=== PATIENT | male | born 1945 | race Caucasian/White ===

== ENCOUNTER → 2016-06-19 | Outpatient (CLI) | payer MEDICARE, OTHER | LOC: RAD 14:37 | PROVIDERS: ATTEND Family Medicine | DX: R35.0 Frequency of micturition (principal) | CPT/HCPCS: 51798 ==

== ENCOUNTER 2016-08-26 10:53 | Inpatient (IN) | payer MEDICARE, OTHER ==
[~2016-08-26] VITALS: Ht 175.3 cm; Wt 83.3 kg
[~2016-08-26 10:53] MED LIST: AMIO200T2 PO; CARV3.12 PO; DGX.25T PO; DIGO125T PO; FURO-125 PO; FURO20TA4 PO; LISI5TAB14 PO; LYSI1000 PO; MIRA50TA PO; SPRN25T PO; WRF5T PO; [UNRECOGNIZED DRUG - CODE] IV; [UNRECOGNIZED DRUG - CODE] SC
[2016-08-26] MEDS ORDERED: TAMS0.4C2 PO (11:38)
[2016-08-26] MEDS ORDERED: CYAN250014 PO (11:39)
[2016-08-26] MEDS ORDERED: MGX400T PO (11:40)
[2016-08-26] MEDS ORDERED: SPIR25TA PO (11:41)
[2016-08-26] MEDS ORDERED: CARV12.5 PO (11:42)
[2016-08-26 12:10] VITALS: BP 105/86
[2016-08-26] MEDS ORDERED: FUROSEMIDE 100 MG/10 ML (LASIX) VIAL IV ONE (12:15)
[2016-08-26] MEDS ORDERED: PROMETHAZINE HCL INJ 12.5 MG in SODIUM CHLORIDE 25 ML IV PRN (12:15)
[2016-08-26] MEDS ORDERED: ONDANSETRON 4 MG (ZOFRAN) ORAL DISSOLVE TAB PO PRN (12:15)
[2016-08-26] MEDS ORDERED: ACETAMINOPHEN 325 MG TAB (TYLENOL) PO PRN (12:15)
[2016-08-26] MEDS ORDERED: POLYETHYLENE GLYCOL 17 GM (MIRALAX) PACKET PO PRN (12:15)
[2016-08-26] MEDS ORDERED: MAGNESIUM HYDROXIDE 80MG/ML (MILK OF MAGNESIA) 30 ML UDC PO PRN (12:15)
[2016-08-26] MEDS ORDERED: NS FLUSH 3 ML PRN IV (12:45)
--- NOTE | 2016-08-26 12:45 | History and Physical (E) ---
History & Physical PCP: Min Araya MD CC: Heart failure HPI Sarath Salazar is a 71 year old male admitted from clinic 08/26 with atrial fibrillation, intermittent RVR, and worsening congestive heart failure failing outpatient management. PCP reports that he has been trying to diurese patient but that patient is still complaining of dyspnea at rest and with activity. SpO2 was stable in office. BNP still elevated > 600 despite diuresis. On arrival to unit, awake, alert, interactive, oriented, NAD and able to relate history well. States onset of illness was about1 week ago and getting worse since. Started with feeling short of breath. No cough. No fever. [place] a bit bloated but appetite had been decreasing. Weight has increased perhaps by 5 pounds per PCP report. Has been taking furosemide as prescribed over the last week by PCP though somewhat inconsistently. No mid-sternal chest pain but has had some discomfort over the left lateral rib region. NO pain with deep inspiration. Has felt some palpitations. PMH * HTN * Colon polyps * Left thalamic lacunar infarct * Vtach * Chronic systolic congestive heart failure with prior LVEF 38% * BPH * Atrial fibrillation * Anticoagulation with warfarin * Thoracic aortic aneurysm * MITZI but not on CPAP * History of tobacco abuse * Nocturnal hypoxia PSH * Colonoscopy * Dual chamber pacemaker with defibrillator. * Herniorrhaphy * TURP 1993 ALLERGIES: Please see list at end of report. HOME MEDICATIONS: Please see list at end of report. FH Mother of colon cancer. Father of [place]. Son of skin cancer in 2014. SH . Lives in his own home. of breast cancer. 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 Quit smoking 2000. No children. ROS CONSTITUTION: Denies fever. HEENT: No change in vision or hearing. No sores in mouth, sore throat. CV: Per HPI, exam. PULM: Per HPI, exam. GI: Occasional dyspepsia. At present, no upset stomach, nausea, vomiting, constipation, or diarrhea. No blood in stool. : Urinary hesitancy. MS: No new muscle or joint aches and pains. NEURO: No numbness or tingling. No weakness. INTEG: No rashes, lesions, or sores. ENDO: No heat or cold intolerance. No polydipsia or polyuria. HEME/LYMPH: No easy bruising. No swollen glands. PSYCH: No change in mood or behavior. OBJECTIVE Temp 96.7 HR 55 RR 20 SpO2 91% RA BP GEN: Awake, alert, oriented, NAD at present. HEENT: EOMI, clear sclerae, moist oral mucosa. CV: Bradycardic, irregular, S1 S2 audible without significant murmur. LUNGS: Diminished throughout but no audible R/R/W. ABD: Soft, NT/ND with normal bowel sounds. EXTR: 1+ lower extremity edema bilaterally. INTEG: No rash. Age related changes. NEURO: Tremor in right arm. Weight: 87.1 kg LABS (Reviewed from office.) 08/26 CBC: WBC 12.7, Hgb 14.3, Plt 135 08/26 CMP: Na 138, K 4.3, Cl 101, CO2 28, BUN 22, Cr 1.3, Ca 9.1, Gluc 92, AST < 7, ALT <5, AlkP 41, Alb 3.8, Prot 6.9, Bili 1.9 08/26 BNP: 677 08/26 INR: 1.9 IMAGING 08/26/16 CXR (Reviewed from office): No apparent signs of pneumonia. Increased interstitial markings. No effusion. ASSESSMENT Sarath Salazar is a 71 year old male admitted from clinic 08/26 with mild, subjective acute respiratory distress attributed to acute on chronic systolic congestive heart failure. He had increased weight and leg swelling on admit. He has a few chronic problems. PLAN * Acute Respiratory Distress: Mild, subjective. Oxygen protocol, IS. * Atrial fibrillation: Intermittent RVR per PCP report. Monitor tele. Digoxin, carvedilol. Warfarin. * Acute on Chronic Systolic Congestive Heart Failure: Weight reportedly up at least 5 pounds despite outpatient attempts at diuresis. Check new echo. 2 gram sodium diet. I&O, daily weight. Carvedilol, spironolactone, lisinopril. Furosemide. * Deconditioning: PT eval and treat. * F/E/N: 2 gram sodium diet. Peripheral IV. I&O daily weight. * Prophylaxis: Enoxaparin * Code Status: DNR. Discussed at time of admit. * Dispo: Inpatient, expecting 2-3 day stay. May benefit from skilled care though he is somewhat resistant to this idea. CHRONIC ISSUES Home medications to be reviewed. * HTN: Carvedilol, lisinopril, spironolactone * BPH: Tamsulosin * B12 Deficiency: Cyanocobalamin. Allergies/Home Medications Allergies: Coded Allergies: No Known Allergies (Verified Allergy, Unknown, 12/15/15) Reported Home Medications Scheduled Carvedilol (Carvedilol) 12.5 MG PO BID (Reported) Cyanocobalamin (Vitamin B-12) (Vitamin B12) 1,000 MCG PO DAILY (Reported) Furosemide (Furosemide) 20 MG PO DAILY (Reported) Lisinopril (Lisinopril) 2.5 MG PO DAILY (Reported) Magnesium Oxide (Magnesium Oxide) 400 MG PO DAILY (Reported) Spironolactone (Aldactone) 25 MG PO DAILY (Reported) Tamsulosin HCl (Tamsulosin HCl) 0.4 MG PO DAILY@1700 (Reported) Warfarin (Warfarin) 4 MG PO DAILY (Reported) Miscellaneous Medications Digoxin (Digoxin) 125 MCG PO (Reported) Discontinued Medications Amiodarone HCl (Amiodarone HCl) 200 MG PO BID (Reported) Discontinued Reason: Course completed Carvedilol (Coreg) 6.25 MG PO BID (Reported) Discontinued Reason: Course completed Enoxaparin Sodium (Lovenox) 120 MG SC DAILY (Reported) Discontinued Reason: Course completed Mirabegron (Myrbetriq) 50 MG PO DAILY (Reported) Discontinued Reason: Course completed Spironolactone (Spironolactone) 12.5 MG PO DAILY (Reported) Discontinued Reason: Course completed Warfarin (Warfarin) Unknown Dose PO as directed (Reported) Discontinued Reason: Course completed Copies to: End of Report . XIOMARA OROZCO MD Aug 26, 2016 12:22
[2016-08-26 12:54] LABS: MAGNESIUM* 1.9 mg/dL (1.6-2.3)
[2016-08-26] MEDS ORDERED: WARF4TAB3 PO (12:55)
[2016-08-26] MEDS ORDERED: PRED5DRO2I OD (13:19)
[2016-08-26] MEDS ORDERED: FUROSEMIDE 100 MG/10 ML (LASIX) VIAL IV SCH (14:00)
--- NOTE | 2016-08-26 16:01 | Physical Therapy Evaluation(E) ---
Plan of Care STG: Plan-Treatment Functional: Independent with HEP STG Time Frame: 5 Days Goals Discussed/Agreed: Yes Plan: Balance, Functional Strengthening, Gait & Transfer Training, Neuro Re- Education, Progressive Ambulation, Transfer Training, Therapy Excercise Discharge Recommendations: TCU/Skilled NH (Due to patient's declining functional status at home per his report and current functional level. ) Aware of Dx and Prognosis: Yes Aware of Risk & Benefit: Yes To be Seen: Daily Thursday-Thursday Initial Evaluation Service Date/Time 08/26/16, 15:51 Primary Diagnosis: (1) Benign positional vertigo ICD Code: H81.10 (2) Acute on chronic systolic (congestive) heart failure ICD Code: I50.23 (3) Congestive heart failure ICD Code: 428.0 (4) Dyspnea ICD Code: 786.09 Treatment Diagnosis: (1) Benign positional vertigo ICD Code: H81.10 (2) Acute on chronic systolic (congestive) heart failure ICD Code: I50.23 (3) Congestive heart failure ICD Code: 428.0 (4) Hx of colonic polyps ICD Code: Z86.010 (5) Dyspnea ICD Code: 786.09 Onset Date: 08/26/2016 Start of Care Date: Aug 26, 2016 Resuscitation Status: Full Code Fall Level: No Risk 0-24 Initial Assessment Reason for Rehab: Increase Mobility, Increase Strength, Increase Balance, Increase AROM, Increase Transfers, Increase Endurance Medical History: A-Fib, CHF, CVA (16 years agao left thalamic lacunar infract) , Hypertension, Other (Pacemaker, thoracic aaortic aneurysm) Pain Location/Comment Patient denies pain. Prior Level of Function The patient lives alone in a single step entry ranch home. 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 Patient would do light meal prep, is having assistance with house cleaning secondary to increasing weakness. Patient would go bike at a fitness center up to 40 minutes but recently this was becoming more difficult. Rehabilitation Potential: Good (Due to willingness to improve function. ) Distance Walked in Feet Patient was fatigued and had increased shortness of air just with sitting on edge of bed. ROM/Strength Hip Mobility: Right Hip Strength: 3 Left Hip Strength: 3 Knee Flexion Mobility: Right Knee Flexion Strength: 3 Left Knee Flexion Strength: 3 Knee Extension Mobility: Right Knee Extension Strength: 3 Left Knee Extension Strength: 3 Assessment/Goals Initial Transfer Assessment Rolling: Supervision or setup Sit-Supine: Supervision or setup Sitting Edge of Bed: Supervision or setup (HR variable from 44 - 99 bpm, 02 saturation 83% verbal cues for diaphragmatic breathing. ) Supine-Sit: Supervision or setup Sit-Stand from Bed: Not Assessed/NA Stand-Sit: Not Assessed/NA Pivot Transfers: Not Assessed/NA Ambulation: Not Assessed/NA Transfer Short Term Goals Rolling: Modified [place] Sit-Supine: Modified [place] Sitting Edge of Bed: Modified [place] Supine-Sit: Modified [place] Sit-Stand from bed: Modified [place] Stand-Sit: Modified [place] Ambulation: Modified [place] Distance to Walk in Feet 300 feet maintaining 02 saturation above 88%. Coding Time In: 1520 Time Out: 1538 Total Minutes: 18 Charges: 75768 Eval< 20 min LISANDRO LANGFORD PT Aug 26, 2016 16:01
[2016-08-26 16:20] VITALS: BP 95/57
[2016-08-26] MEDS: warFARin 4 MG (COUMADIN) TAB PO SCH (17:36)
[2016-08-26] MEDS: TAMSULOSIN 0.4 MG (FLOMAX) CAP PO SCH (17:36)
[2016-08-26] MEDS: PREDNISOLONE 1% OD SCH (17:37)
[2016-08-26] MEDS: NS FLUSH 10 ML PRN IV (17:37)
[2016-08-26] MEDS ORDERED: CARVEDILOL 12.5 MG (COREG) TABLET PO SCH (18:00)
[2016-08-26 20:30] VITALS: BP 83/55
[2016-08-26 23:55] VITALS: BP 78/52
[2016-08-27 00:21] VITALS: BP 80/59
[2016-08-27 04:15] VITALS: BP 94/68
[2016-08-27 06:26] LABS: BASOPHILS % (AUTO) 0 % (0-2); EOSINOPHILS # (AUTO) 0.1 10^3uL; EOSINOPHILS % (AUTO) 1 % (0-4); LYMPHOCYTES # (AUTO) 0.9 X10^3; MEAN CORPUSCULAR HEMOGLOBIN 29.1 PG (26.0-34.0); MEAN CORPUSCULAR HGB CONC 33.2 g/dL (31.0-37.0); MEAN CORPUSCULAR VOLUME 88 FL (80-100); MEAN PLATELET VOLUME 11.3 FL (6.0-9.5); MONOCYTES # (AUTO) 0.8 X10^3; MONOCYTES % (AUTO) 11 % (3-11); NEUTROPHILS # (AUTO) 5.8 X10^3; NEUTROPHILS % (AUTO) 76 % (51-67); PLATELET COUNT 133 10^3uL (150-450); WHITE BLOOD COUNT 7.64 10^3uL (4.0-11.0)
[2016-08-27 06:50] LABS: ALBUMIN 3.6 g/dL (3.4-5.0); ANION GAP 13.1 MEQ/L (3-15); MAGNESIUM* 1.9 mg/dL (1.6-2.3)
[2016-08-27 07:43] VITALS: BP 88/50
[2016-08-27] MEDS ORDERED: SPIRONOLACTONE 25 MG (ALDACTONE) TABLET PO SCH (09:00)
[2016-08-27] MEDS: lisINopril 5 MG (PRINIVIL) TABLET PO SCH (09:00)
[2016-08-27] MEDS: MAGNESIUM OXIDE 400 MG (MAG-OX) TAB PO SCH (09:25)
[2016-08-27] MEDS: DIGOXIN 0.125 MG (LANOXIN) TAB PO SCH (09:25)
[2016-08-27] MEDS: CYANOCOBALAMIN 1000 MCG (VITAMIN B-12) TABLET PO SCH (09:25)
[2016-08-27] MEDS: NS FLUSH 3 ML DAILY IV SCH (09:26)
[2016-08-27] MEDS: PREDNISOLONE 1% OD SCH ×3 (09:26→18:25)
[2016-08-27] MEDS ORDERED: MAGNESIUM 1 GM/100 ML IVPB 100 ML IV ONE (10:30)
--- NOTE | 2016-08-27 11:03 | Progress Note (E) ---
Progress Note SUBJECTIVE Had some Vtach bursts through the night. Overnight physician checked troponin trend but it was normal. Furosemide was held. Mg 1.9. Giving 1 gram IV supplement this AM to push it above 2. Remains on tele. Noted he has AICD. Hypotensive at times. Lowering dose of carvedilol and spironolactone. On 1 L NC. Afebrile. On exam, awake, interactive, oriented. Updated on findings, plan of care. OBJECTIVE Vital Signs Date Time Temp Pulse Resp B/P Pulse Ox O2 Delivery O2 Flow Rate FiO2 08/27/16 08:00 130 08/27/16 07:43 97.4 20 88/50 97 Nasal cannula 08/26/16 23:55 1.00 I & O 08/26/16 08/27/16 Cumulative From/Thru 19:00 07:00 08/26/16 11:38 - 08/27/16 06:32 Intake Total 592 ml 400 ml 992 ml Output Total 2250 ml 2250 ml Balance 592 ml -1850 ml -1258 ml GEN: Awake, alert, oriented, NAD at present. HEENT: EOMI, clear sclerae, moist oral mucosa. CV: Bradycardic, irregular, S1 S2 audible without significant murmur. LUNGS: Diminished throughout but no audible R/R/W. ABD: Soft, NT/ND with normal bowel sounds. EXTR: 1+ lower extremity edema bilaterally. INTEG: No rash. Age related changes. NEURO: Tremor in right arm. Weight: 83.3 kg Lab-Past 14 Days, 35 Results 08/26/16 12:33: Magnesium Level 1.9, Troponin I 0.021 08/27/16 00:10: Troponin I 0.024 08/27/16 06:05: Magnesium Level 1.9, Troponin I 0.021, Albumin 3.6, Anion Gap 13.1, Basophils # (Auto) 0.0, Basophils (%) (Auto) 0, Blood Urea Nitrogen 28H, Calcium Level 9.2, Carbon Dioxide Level 31H, Chloride Level 100, Creatinine 1.28, Eosinophils # ( Auto) 0.1, Eosinophils (%) (Auto) 1, Estimat Glomerular Filtration Rate 67.4, Estimated GFR (Non- 55.7, Glucose Level 79, Hematocrit 43.10, Hemoglobin 14.3, Lymphocytes # (Auto) 0.9, Lymphocytes (%) (Auto) 12L, Mean Corpuscular Hemoglobin 29.1, Mean Corpuscular Hemoglobin Concent 33.2, Mean Corpuscular Volume 88, Mean Platelet Volume 11.3H, Monocytes # (Auto) 0.8, Monocytes (%) (Auto) 11, Neutrophils # (Auto) 5.8, Neutrophils (%) (Auto) 76H, Phosphorus Level 4.2, Platelet Count 133L, Potassium Level 4.0, Prothromb Time International Ratio 2.2H, Prothrombin Time 24.9H, Red Blood Count 4.91, Red Cell Distribution Width 14.6, Sodium Level 140, White Blood Count 7.64 LABS (Reviewed from office.) 08/26 CBC: WBC 12.7, Hgb 14.3, Plt 135 08/26 CMP: Na 138, K 4.3, Cl 101, CO2 28, BUN 22, Cr 1.3, Ca 9.1, Gluc 92, AST < 7, ALT <5, AlkP 41, Alb 3.8, Prot 6.9, Bili 1.9 08/26 BNP: 677 08/26 INR: 1.9 IMAGING 08/27/16 ECHO: PENDING 08/26/16 CXR (Reviewed from office): No apparent signs of pneumonia. Increased interstitial markings. No effusion. ASSESSMENT Sarath Salazar is a 71 year old male admitted from clinic 08/26 with mild, subjective acute respiratory distress attributed to acute on chronic systolic congestive heart failure. He had increased weight and leg swelling on admit. He has a few chronic problems. PLAN * Acute Respiratory Distress: Mild, subjective. Oxygen protocol, IS. * Atrial fibrillation: Intermittent RVR per PCP report but mostly bradycardic since admit. Monitor tele. Digoxin, carvedilol. Warfarin. * Acute on Chronic Systolic Congestive Heart Failure: Weight reportedly up at least 5 pounds despite outpatient attempts at diuresis. Check new echo. 2 gram sodium diet. I&O, daily weight. Carvedilol, spironolactone, lisinopril. Furosemide had been held in AM 08/27 but restarted at lower dose. * Deconditioning: PT eval and treat. * Hypotension: Lowered dose of carvedilol to 6.25 mg BID and spironolactone to 12.5 mg. Parameters to hold if SBP < 90. Monitor trend closely. * Vtach: Has history of. Already has AICD. Echo pending but already known to have low LVEF. No longer on amiodarone. Give mag 1 gram IV. Digoxin. Monitor tele. * F/E/N: 2 gram sodium diet. Peripheral IV. I&O daily weight. * Prophylaxis: Enoxaparin * Code Status: DNR. Discussed at time of admit. * Dispo: Inpatient, expecting 2-3 day stay. May benefit from skilled care though he is somewhat resistant to this idea. CHRONIC ISSUES * HTN: Carvedilol, lisinopril, spironolactone * BPH: Tamsulosin * B12 Deficiency: Cyanocobalamin. XIOMARA OROZCO MD Aug 27, 2016 10:38
[2016-08-27 11:49] VITALS: BP 100/65
--- NOTE | 2016-08-27 13:49 | PT Daily Note Inpatient (E) ---
PT Daily Treatment Service Date/Time 08/27/16, 13:45 Medical Diagnosis: (1) Benign positional vertigo ICD Code: H81.10 (2) Acute on chronic systolic (congestive) heart failure ICD Code: I50.23 (3) Congestive heart failure ICD Code: 428.0 (4) Dyspnea ICD Code: 786.09 Physical Therapy: (1) Benign positional vertigo ICD Code: H81.10 (2) Acute on chronic systolic (congestive) heart failure ICD Code: I50.23 (3) Congestive heart failure ICD Code: 428.0 (4) Hx of colonic polyps ICD Code: Z86.010 (5) Dyspnea ICD Code: 786.09 Precaution/Isolation: Standard Precautions Resuscitation Status: Full Code Fall Level: Low Risk 25-50 Subjective Pt resting in bed. Agrees to therapy. Oxygen Delivery: Nasal cannula O2 liters/minute: 1 Treatments Sit, Stand, Supine: Supine Extremity: Both Lower Extremity Assistance: AROM Repetition: 1 x 20 Exercise: AP, QS, Heel Slides, Hip Abduction, SLR, Bridge Transfers Rolling: Complete [place] Sit-Supine: Modified [place] Sitting Edge of Bed: Complete [place] Supine-Sit: Complete [place] Sit-Stand from bed: Supervision or setup Stand-Sit: Supervision or setup Gait Ambulation: Contact Guard Assist Distance Walked: 600 feet with no O2 O2 sat maintained at 94% during gait on room air. Assistive Device: FWW Gait Description: Normal:No Sig. Deviation, Shuffling (on left foot at times.) Education/Plan Assessment O2 sat maintained in low 90's during treatment on room air. Plan Patient will be seen: Daily Thursday-Thursday Coding Time In: 13:16 Time Out: 13:44 Total Minutes: 28 Charges: 25417 Exercise Therp 15 m (28 minutes) Patrick Bhakta CLINICAL LAB SPECIALIST Aug 27, 2016 13:49
[2016-08-27] MEDS: NS FLUSH 10 ML PRN IV (14:47)
[2016-08-27] MEDS: FUROSEMIDE 40 MG/4 ML (LASIX) VIAL IV SCH (14:47)
[2016-08-27 16:00] VITALS: BP 130/69
[2016-08-27] MEDS: warFARin 4 MG (COUMADIN) TAB PO SCH (18:22)
[2016-08-27] MEDS: CARVEDILOL 6.25 MG (COREG) TAB PO SCH (18:22)
[2016-08-27] MEDS: TAMSULOSIN 0.4 MG (FLOMAX) CAP PO SCH (18:22)
[2016-08-27 20:51] VITALS: BP 91/62
[2016-08-28] VITALS: BP 89/58
[2016-08-28] MEDS: DOCUSATE SODIUM 100 MG (COLACE) CAP PO PRN ×2 (03:43→20:24)
[2016-08-28 04:10] VITALS: BP 89/58
[2016-08-28 06:44] LABS: ALBUMIN 3.7 g/dL (3.4-5.0); ANION GAP 14.6 MEQ/L (3-15); MAGNESIUM* 2.2 mg/dL (1.6-2.3)
[2016-08-28] MEDS: CARVEDILOL 6.25 MG (COREG) TAB PO SCH ×2 (07:29→18:00)
[2016-08-28] MEDS: lisINopril 5 MG (PRINIVIL) TABLET PO SCH (07:30)
[2016-08-28 08:03] VITALS: BP 82/61
[2016-08-28] MEDS: FUROSEMIDE 40 MG/4 ML (LASIX) VIAL IV SCH (08:12)
[2016-08-28] MEDS: SPIRONOLACTONE 25 MG (ALDACTONE) TABLET PO SCH (08:14)
[2016-08-28] MEDS: MAGNESIUM OXIDE 400 MG (MAG-OX) TAB PO SCH (08:14)
[2016-08-28] MEDS: DIGOXIN 0.125 MG (LANOXIN) TAB PO SCH (08:15)
[2016-08-28] MEDS: CYANOCOBALAMIN 1000 MCG (VITAMIN B-12) TABLET PO SCH (08:15)
[2016-08-28] MEDS: NS FLUSH 10 ML PRN IV (08:16)
[2016-08-28] MEDS: PREDNISOLONE 1% OD SCH ×3 (10:20→18:13)
[2016-08-28] MEDS: NS FLUSH 3 ML DAILY IV SCH (10:21)
--- NOTE | 2016-08-28 11:20 | PT Daily Note Inpatient (E) ---
PT Daily Treatment Service Date/Time 08/28/16, 11:19 Medical Diagnosis: (1) Benign positional vertigo ICD Code: H81.10 (2) Acute on chronic systolic (congestive) heart failure ICD Code: I50.23 (3) Congestive heart failure ICD Code: 428.0 (4) Dyspnea ICD Code: 786.09 Physical Therapy: (1) Benign positional vertigo ICD Code: H81.10 (2) Acute on chronic systolic (congestive) heart failure ICD Code: I50.23 (3) Congestive heart failure ICD Code: 428.0 (4) Hx of colonic polyps ICD Code: Z86.010 (5) Dyspnea ICD Code: 786.09 Precaution/Isolation: Standard Precautions Resuscitation Status: Full Code Fall Level: Low Risk 25-50 Subjective Pt resting in bed. Agrees to therapy. Oxygen Delivery: Nasal cannula O2 liters/minute: 2L Treatments Sit, Stand, Supine: Standing Extremity: Both Lower Extremity Assistance: AROM Repetition: 1 x 20 Exercise: Hip Abduction, Hip Flexion, TR, HR Comment Pt required moderate cues for deep breaths to maintain O2 in low 90's while standing and exercising. Transfers Supine-Sit: Complete [place] Sit-Stand from bed: Complete [place] Stand-Sit: Complete [place] Gait Ambulation: Contact Guard Assist Distance Walked: 900 feet on room air. O2 sat at 95% right after walking. Assistive Device: None Gait Description: Shuffling (on right.), Lacks Arm Swing (on right.) Gait Training: Limitations: Fatigue Education/Plan Assessment Pt tolerating increased activity. Response to Treatment: Improving Plan Patient will be seen: Daily Thursday-Thursday Coding Time In: 10:47 Time Out: 11:17 Total Minutes: 29 Charges: 40491 Exercise Therp 15 m (29 minutes) Patrick Bhakta FINANCIAL SERVICE REP Aug 28, 2016 11:20
[2016-08-28 12:14] VITALS: BP 99/69
[2016-08-28 16:10] VITALS: BP_SYST 120; BP_SYST 77; BP_DIAS 42; BP_DIAS 74
--- NOTE | 2016-08-28 17:32 | Progress Note (E) ---
Progress Note SUBJECTIVE Overnight, no major issues. BP remains low at times. Already down-titrated BP meds. On oxygen at times but RN says this is just for comfort. Excellent diuresis. Weight down 4 kg since admit. PT remarks that he has mild desat with activity that corrects with deep inspiration. Chemistry stable though BUN is rising. Tele still shows lots of ventricular ectopy. On exam, alert, interactive. He's very distressed about still being hospital and is insistent that he must participate in a trade show on Thursday. I stressed my concern that he needs rehab and that he is a very high risk of readmission. Compromise: He will discharge in AM if oxygenation is stable on room air. He will return here Thursday evening to be admitted to skilled care. Discuss with inventory planner in AM. OBJECTIVE Vital Signs Date Time Temp Pulse Resp B/P Pulse Ox O2 Delivery O2 Flow Rate FiO2 08/28/16 17:06 50 08/28/16 16:10 97.3 18 77/42 97 Nasal cannula 08/26/16 23:55 1.00 I & O 08/27/16 08/28/16 Cumulative From/Thru 19:00 07:00 08/26/16 11:38 - 08/28/16 06:46 Intake Total 550 ml 1200 ml 2742 ml Output Total 400 ml 3150 ml 5800 ml Balance 150 ml -1950 ml -3058 ml GEN: Awake, alert, oriented, NAD at present. HEENT: EOMI, clear sclerae, moist oral mucosa. CV: Bradycardic, irregular, S1 S2 audible without significant murmur. LUNGS: Diminished throughout but no audible R/R/W. ABD: Soft, NT/ND with normal bowel sounds. EXTR: Trace lower extremity edema bilaterally. INTEG: No rash. Age related changes. NEURO: Tremor in right arm. Weight: 83 kg (admit weight 87.1 kg) Lab-Past 14 Days, 35 Results 08/26/16 12:33: Magnesium Level 1.9, Troponin I 0.021 08/27/16 00:10: Troponin I 0.024 08/27/16 06:05: Magnesium Level 1.9, Troponin I 0.021, Albumin 3.6, Anion Gap 13.1, Basophils # (Auto) 0.0, Basophils (%) (Auto) 0, Blood Urea Nitrogen 28H, Calcium Level 9.2, Carbon Dioxide Level 31H, Chloride Level 100, Creatinine 1.28, Eosinophils # ( Auto) 0.1, Eosinophils (%) (Auto) 1, Estimat Glomerular Filtration Rate 67.4, Estimated GFR (Non- 55.7, Glucose Level 79, Hematocrit 43.10, Hemoglobin 14.3, Lymphocytes # (Auto) 0.9, Lymphocytes (%) (Auto) 12L, Mean Corpuscular Hemoglobin 29.1, Mean Corpuscular Hemoglobin Concent 33.2, Mean Corpuscular Volume 88, Mean Platelet Volume 11.3H, Monocytes # (Auto) 0.8, Monocytes (%) (Auto) 11, Neutrophils # (Auto) 5.8, Neutrophils (%) (Auto) 76H, Phosphorus Level 4.2, Platelet Count 133L, Potassium Level 4.0, Prothromb Time International Ratio 2.2H, Prothrombin Time 24.9H, Red Blood Count 4.91, Red Cell Distribution Width 14.6, Sodium Level 140, White Blood Count 7.64 08/28/16 05:55: Magnesium Level 2.2, Albumin 3.7, Anion Gap 14.6, Blood Urea Nitrogen 35H, Calcium Level 9.2, Carbon Dioxide Level 30H, Chloride Level 97L, Creatinine 1.27 , Estimat Glomerular Filtration Rate 68.0, Estimated GFR (Non- 56.2, Glucose Level 110#, Phosphorus Level 3.6, Potassium Level 4.2, Sodium Level 137 LABS (Reviewed from office.) 08/26 CBC: WBC 12.7, Hgb 14.3, Plt 135 08/26 CMP: Na 138, K 4.3, Cl 101, CO2 28, BUN 22, Cr 1.3, Ca 9.1, Gluc 92, AST < 7, ALT <5, AlkP 41, Alb 3.8, Prot 6.9, Bili 1.9 08/26 BNP: 677 08/26 INR: 1.9 IMAGING 08/27/16 ECHO: PENDING. Prelim LVEF 25-30%, a decline from 1 year prior. RVSP 25 mmHg. 08/26/16 CXR (Reviewed from office): No apparent signs of pneumonia. Increased interstitial markings. No effusion. ASSESSMENT Sarath Salazar is a 71 year old male admitted from clinic 08/26 with mild, subjective acute respiratory distress attributed to acute on chronic systolic congestive heart failure. He had increased weight and leg swelling on admit. He has a few chronic problems. PLAN * Acute Respiratory Distress: Mild, subjective. Oxygen protocol, IS. * Atrial fibrillation: Intermittent RVR per PCP report but mostly bradycardic since admit. Monitor tele. Digoxin, carvedilol. Warfarin. * Acute on Chronic Systolic Congestive Heart Failure: Improving. Admit weight 87.1 kg, up reportedly up at least 2 kg in outpatient setting despite attempts at diuresis. New echo pending but prelim shows worsening EF at 25%. 2 gram sodium diet. I&O, daily weight. Carvedilol, spironolactone, lisinopril. Furosemide had been held in AM 08/27 but restarted at lower dose. * Deconditioning: PT eval and treat. * Hypotension: Lowered dose of carvedilol to 6.25 mg BID and spironolactone to 12.5 mg. Parameters to hold if SBP < 90. Monitor trend closely. * Vtach: Has history of. Already has AICD. Echo pending but already known to have low LVEF. No longer on amiodarone. Give Mg 1 gram IV. Digoxin. Monitor tele. * F/E/N: 2 gram sodium diet. Peripheral IV. I&O daily weight. * Prophylaxis: Enoxaparin * Code Status: DNR. Discussed at time of admit. * Dispo: Inpatient. Patient is requesting discharge. Agrees to observation at least 1 more day. Agreeable to SNF admit 08/30 for benefit of rehab and further CHF monitoring. Need to discuss with inventory planner. CHRONIC ISSUES * HTN: Carvedilol, lisinopril, spironolactone * BPH: Tamsulosin * B12 Deficiency: Cyanocobalamin. XIOMARA OROZCO MD Aug 28, 2016 17:31
[2016-08-28] MEDS: TAMSULOSIN 0.4 MG (FLOMAX) CAP PO SCH (18:12)
[2016-08-28] MEDS: warFARin 4 MG (COUMADIN) TAB PO SCH (18:12)
[2016-08-28 20:00] VITALS: BP 118/62
[2016-08-29] VITALS: BP 92/61
[2016-08-29 04:00] VITALS: BP 112/76
[2016-08-29] MEDS: DOCUSATE SODIUM 100 MG (COLACE) CAP PO PRN (06:44)
--- NOTE | 2016-08-29 08:52 | Discharge Instructions (E) ---
Discharge Instructions Instructions * You were evaluated and treated for shortness of breath due to aggravation of congestive heart failure. You improved with diuresis (removing water with medication.) You were also noted to have weakness and decreased endurance. For these reasons, it is NOT recommended that you be discharged home yet. Instead, it is recommended that you have some additional rehab in long term. 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 This is risky because of changes that have been made to your medications, low blood pressure, and your overall decline in cardiac and physical health. You understand that by leaving 08/29 you are at increased risk of adverse outcome including injury and . * It is highly recommended that you return 08/30 to this hospital where you can be directly admitted to long term care to continue close medical supervision of your heart failure as well as resume physical and occupational therapy. Report to admissions as soon as possible to be registered for skilled care. Activity Instructions No driving because of low blood pressure. No strenuous activity including standing for long periods of time. No heavy lifting. Doctor's Appointment Return to [facility] 08/30. Report to admissions so you can be registered for long term care. Discharge Diet: Salt (sodium) restricted XIOMARA OROZCO MD Aug 29, 2016 08:52
[2016-08-29] MEDS ORDERED: AC325T PO (08:55)
[2016-08-29] MEDS ORDERED: FURO20TA4 PO (08:55)
[2016-08-29] MEDS ORDERED: SPRN25T PO (08:55)
[2016-08-29] MEDS ORDERED: CRV6.25T PO (08:55)
[2016-08-29] MEDS: NS FLUSH 3 ML DAILY IV SCH (09:00)
[2016-08-29] MEDS: SPIRONOLACTONE 25 MG (ALDACTONE) TABLET PO SCH (09:00)
[2016-08-29 09:05] VITALS: BP 82/61
[2016-08-29] MEDS ORDERED: FUROSEMIDE 20 MG (LASIX) TAB PO ONE (09:10)
--- NOTE | 2016-08-29 09:14 | Discharge Summary (E) ---
Discharge Summary (E) Admit Date/Time Aug 26, 2016 at 11:14 Discharge Date/Time Aug 29, 2016 Admitting Provider Xiomara Momin MD Primary Care Provider Min Araya MD Attending Provider Xiomara Momin MD Consulting Provider History and Present Illness Sarath Salazar is a 71 year old male admitted from clinic 08/26 with mild, subjective acute respiratory distress attributed to acute on chronic systolic congestive heart failure. He had increased weight and leg swelling on admit. He has a few chronic problems. He improved with IV furosemide. He was noted to have erratic rhythm on tele including atrial fibrillation, v-pacing, and frequent ventricular ectopy. Though he had some runs of V-tach, they were short- lived and his AICD was never triggered. Magnesium was given but no substantive improvement in tele was noted. He overall felt better. It was highly recommended that he transition to skilled care for further rehab and close medical supervision of his CHF. 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 Risks of this endeavor were discussed at length. Though it was not the recommended course of action, compromise was to discharge home 08/29 but have him return to this facility 08/30 to be admitted to skilled care. Hospital Course and Treatment * Acute Respiratory Distress: Improved. Mild on admit, subjective. Oxygen protocol, IS. * Atrial fibrillation: Intermittent RVR per PCP report. Mostly bradycardic on admit. Monitored tele which showed atrial fibrillation with pacing and ventricular ectopy. Digoxin, carvedilol. Warfarin. * Acute on Chronic Systolic Congestive Heart Failure: Improving. Admit weight 87.1 kg, up reportedly up at least 2 kg in outpatient setting despite attempts at diuresis. New echo pending but prelim shows worsening EF at 25%. 2 gram sodium diet. I&O, daily weight. Carvedilol, spironolactone, lisinopril. Furosemide had been held in AM 08/27 but restarted at lower dose. Plan to continue diuresis in skilled care. * Deconditioning: PT eval and treat. Start PT/OT in skilled care when he returns. * Hypotension: Lowered dose of carvedilol to 6.25 mg BID and spironolactone to 12.5 mg. Parameters to hold if SBP < 90. Stressed these changes on discharge. * Vtach: Has history of. Already has AICD. Echo pending but already known to have low LVEF. No longer on amiodarone. Gave Mg 1 gram IV. Digoxin. Monitored tele. * F/E/N: 2 gram sodium diet. Peripheral IV. I&O daily weight. * Prophylaxis: Enoxaparin * Code Status: DNR. Discussed at time of admit. * Dispo: Inpatient. Discharged 08/29 to home so he can attend a [employer] show. Instructed to return 08/30 for skilled care. Stressed at discharge that this was not our medical advice, but it was a compromise that has the best chance of optimizing his care while respecting his autonomy. CHRONIC ISSUES * HTN: Carvedilol, lisinopril, spironolactone * BPH: Tamsulosin * B12 Deficiency: Cyanocobalamin. Discharge Physicial Exam General Vital Signs Date Time Temp Pulse Resp B/P Pulse Ox O2 Delivery O2 Flow Rate FiO2 08/29/16 08:05 142 08/29/16 04:00 97.4 20 112/76 100 Room air 08/26/16 23:55 1.00 GEN: Awake, alert, oriented, NAD at present. HEENT: EOMI, clear sclerae, moist oral mucosa. CV: Bradycardic, irregular, S1 S2 audible without significant murmur. LUNGS: Diminished but audible air movement throughout. No audible R/R/W. ABD: Soft, NT/ND with normal bowel sounds. EXTR: Trace lower extremity edema bilaterally. INTEG: No rash. Age related changes. NEURO: Tremor in right arm. Laboratory/Radiology Data Laboratory Results-14 Days 08/26/16 12:33: Magnesium Level 1.9, Troponin I 0.021 08/27/16 00:10: Troponin I 0.024 08/27/16 06:05: Magnesium Level 1.9, Troponin I 0.021, Albumin 3.6, Anion Gap 13.1, Basophils # (Auto) 0.0, Basophils (%) (Auto) 0, Blood Urea Nitrogen 28H, Calcium Level 9.2, Carbon Dioxide Level 31H, Chloride Level 100, Creatinine 1.28, Eosinophils # ( Auto) 0.1, Eosinophils (%) (Auto) 1, Estimat Glomerular Filtration Rate 67.4, Estimated GFR (Non- 55.7, Glucose Level 79, Hematocrit 43.10, Hemoglobin 14.3, Lymphocytes # (Auto) 0.9, Lymphocytes (%) (Auto) 12L, Mean Corpuscular Hemoglobin 29.1, Mean Corpuscular Hemoglobin Concent 33.2, Mean Corpuscular Volume 88, Mean Platelet Volume 11.3H, Monocytes # (Auto) 0.8, Monocytes (%) (Auto) 11, Neutrophils # (Auto) 5.8, Neutrophils (%) (Auto) 76H, Phosphorus Level 4.2, Platelet Count 133L, Potassium Level 4.0, Prothromb Time International Ratio 2.2H, Prothrombin Time 24.9H, Red Blood Count 4.91, Red Cell Distribution Width 14.6, Sodium Level 140, White Blood Count 7.64 08/28/16 05:55: Magnesium Level 2.2, Albumin 3.7, Anion Gap 14.6, Blood Urea Nitrogen 35H, Calcium Level 9.2, Carbon Dioxide Level 30H, Chloride Level 97L, Creatinine 1.27 , Estimat Glomerular Filtration Rate 68.0, Estimated GFR (Non- 56.2, Glucose Level 110#, Phosphorus Level 3.6, Potassium Level 4.2, Sodium Level 137 LABS (Reviewed from office.) 08/26 CBC: WBC 12.7, Hgb 14.3, Plt 135 08/26 CMP: Na 138, K 4.3, Cl 101, CO2 28, BUN 22, Cr 1.3, Ca 9.1, Gluc 92, AST < 7, ALT <5, AlkP 41, Alb 3.8, Prot 6.9, Bili 1.9 08/26 BNP: 677 08/26 INR: 1.9 IMAGING 08/27/16 ECHO: PENDING. Prelim LVEF 25-30%, a decline from 1 year prior. RVSP 25 mmHg. 08/26/16 CXR (Reviewed from office): No apparent signs of pneumonia. Increased interstitial markings. No effusion. Discharge Disposition Discharged home with plan to have him return 08/29 for skilled care admission. Instructions * You were evaluated and treated for shortness of breath due to aggravation of congestive heart failure. You improved with diuresis (removing water with medication.) You were also noted to have weakness and decreased endurance. For these reasons, it is NOT recommended that you be discharged home yet. Instead, it is recommended that you have some additional rehab in intermediate. 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 This is risky because of changes that have been made to your medications, low blood pressure, and your overall decline in cardiac and physical health. You understand that by leaving 08/29 you are at increased risk of adverse outcome including injury and . * It is highly recommended that you return 08/30 to this hospital where you can be directly admitted to intermediate care to continue close medical supervision of your heart failure as well as resume physical and occupational therapy. Report to admissions as soon as possible to be registered for skilled care. Activity Instructions No driving because of low blood pressure. No strenuous activity including standing for long periods of time. No heavy lifting. Appointments Return to [facility] 08/30. Report to admissions so you can be registered for intermediate care. Discharge Diet: Salt (sodium) restricted Discharge Medications New Medications: Acetaminophen (Acetaminophen) 325 Mg Tablet 650 MG PO Q6H PRN PAIN #0 Ref 0 TAB Carvedilol (Carvedilol) 6.25 Mg Tablet 6.25 MG PO BID WITH MEALS #10 Ref 0 TAB Spironolactone (Spironolactone) 25 Mg Tablet 12.5 MG PO DAILY #10 Ref 0 TAB Changed Medications: Furosemide (Furosemide) 20 Mg Tablet 40 MG PO DAILY #10 Ref 0 TAB (Changed from: 20 MG; Refills: ) Continued Medications: Cyanocobalamin (Vitamin B-12) (Vitamin B12) 2,500 Mcg Tab.chew 1000 MCG PO DAILY TAB.CHEW Digoxin (Digoxin) 125 Mcg Tablet 125 MCG PO DAILY Lisinopril (Lisinopril) 5 Mg Tablet 2.5 MG PO DAILY TAB Magnesium Oxide (Magnesium Oxide) 400 Mg Tablet 400 MG PO DAILY TAB Prednisolone Acetate (Pred Forte 1% Ophthalmic Suspension) 5 Ml Drops.susp 1 DROP OD TID #5 Tamsulosin HCl (Tamsulosin HCl) 0.4 Mg Cap.er.24h 0.4 MG PO DAILY@1700 Bph Ref 0 CAP Warfarin (Warfarin) 4 Mg Tablet 4 MG PO DAILY@1700 TAB Discontinued Medications: Carvedilol (Carvedilol) 12.5 Mg Tablet 12.5 MG PO BID WITH MEALS TAB Spironolactone (Aldactone) 25 Mg Tablet 25 MG PO DAILY TAB Discharge Diagnosis See list above. Problems: Copies to: End of Report . XIOMARA MOMIN MD Aug 29, 2016 09:14
[2016-08-29] MEDS: CARVEDILOL 6.25 MG (COREG) TAB PO SCH (09:16)
[2016-08-29] MEDS: lisINopril 5 MG (PRINIVIL) TABLET PO SCH (09:29)
[2016-08-29] MEDS: MAGNESIUM OXIDE 400 MG (MAG-OX) TAB PO SCH (09:30)
[2016-08-29] MEDS: DIGOXIN 0.125 MG (LANOXIN) TAB PO SCH (09:30)
[2016-08-29] MEDS: CYANOCOBALAMIN 1000 MCG (VITAMIN B-12) TABLET PO SCH (09:30)
[2016-08-29] MEDS: PREDNISOLONE 1% OD SCH (09:32)
== END 2016-08-29 10:12 | disposition home or self-care (01) | DRG 292 ==
LOC: MED/SURG 11:14
PROVIDERS: ADMIT Internal Medicine; ATTEND Internal Medicine
DX: I11.0 Hypertensive heart disease with heart failure (principal); I47.2 Ventricular tachycardia; I50.23 Acute on chronic systolic (congestive) heart failure; Z66 Do not resuscitate; I48.91 Unspecified atrial fibrillation; I49.3 Ventricular premature depolarization; I71.2 Thoracic aortic aneurysm, without rupture; E53.8 Deficiency of other specified B group vitamins; G47.33 Obstructive sleep apnea (adult) (pediatric); I95.9 Hypotension, unspecified; N40.0 Benign prostatic hyperplasia without lower urinary tract symptoms; Z79.01 Long term (current) use of anticoagulants; Z95.810 Presence of automatic (implantable) cardiac defibrillator; Z86.73 Personal history of transient ischemic attack (TIA), and cerebral infarction without residual deficits; Z87.891 Personal history of nicotine dependence
CPT/HCPCS: 36415; 80069; 83735; 84484; 85025; 85610; 93306; 94760

== ENCOUNTER 2016-08-30 17:17 | Inpatient (IN) | payer MEDICARE, OTHER ==
[~2016-08-30] VITALS: Ht 175.3 cm; Wt 81.6 kg
[~2016-08-30 17:17] MED LIST changes: +AC325T PO; +CARV12.5 PO; +CRV6.25T PO; +CYAN250014 PO; +MGX400T PO; +PRED5DRO2I OD; +SPIR25TA PO; +TAMS0.4C2 PO; +WARF4TAB3 PO
[2016-08-30] MEDS ORDERED: ACETAMINOPHEN 325 MG TAB (TYLENOL) PO PRN (17:30)
[2016-08-30] MEDS ORDERED: SODIUM CHLORIDE FLUSH 3 ML SYR IV PRN (17:30)
[2016-08-30] MEDS ORDERED: MAGNESIUM HYDROXIDE 80MG/ML (MILK OF MAGNESIA) 30 ML UDC PO PRN (17:30)
[2016-08-30] MEDS ORDERED: ONDANSETRON 4 MG (ZOFRAN) ORAL DISSOLVE TAB PO PRN (17:30)
--- NOTE | 2016-08-30 17:30 | NUR ---
A 71 yr old white male admitted to swing bed for deconditioning. Assessments completed. Pt alert and oriented x 4.
[2016-08-30 17:40] VITALS: BP 104/76
[2016-08-30] MEDS: PREDNISOLONE 1% OD SCH (18:00)
[2016-08-30] MEDS: CARVEDILOL 6.25 MG (COREG) TAB PO SCH (18:14)
--- NOTE | 2016-08-30 18:46 | History and Physical (E) ---
History & Physical PCP: Min Araya MD CC: Deconditioning, CHF HPI Sarath Salazar is a 71 year old male admitted [facility] after acute hospitalization 08/26-08/29 for acute respiratory distress attributed to acute on chronic systolic congestive heart failure. He did improve with standard therapies for CHF exacerbation but was felt to benefit from further close medical supervision of resolving acute on chronic conditions as well as physical and occupational therapy for deconditioning. On arrival to unit he was alert and interactive and in no significant distress. Tolerating breathing on room air. Weight 85.2 kg, already up 2 kg from his previous discharge though this may reflect some difference in clothing. PMH * HTN * Colon polyps * Left thalamic lacunar infarct * Vtach * Chronic systolic congestive heart failure with prior LVEF 38% * BPH * Atrial fibrillation * Anticoagulation with warfarin * Thoracic aortic aneurysm * MITZI but not on CPAP * History of tobacco abuse * Nocturnal hypoxia PSH * Colonoscopy * Dual chamber pacemaker with defibrillator. * Herniorrhaphy * TURP 1993 ALLERGIES: Please see list at end of report. HOME MEDICATIONS: Please see list at end of report. FH Mother of colon cancer. Father of [place]. Son of skin cancer in 2014. SH . Lives in his own home. of breast cancer. 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 Quit smoking 2000. No children. ROS CONSTITUTION: Denies fever. HEENT: No change in vision or hearing. No sores in mouth, sore throat. CV: Per HPI, exam. PULM: Per HPI, exam. GI: Occasional dyspepsia. At present, no upset stomach, nausea, vomiting, constipation, or diarrhea. No blood in stool. : Urinary hesitancy. MS: No new muscle or joint aches and pains. NEURO: No numbness or tingling. No weakness. INTEG: No rashes, lesions, or sores. ENDO: No heat or cold intolerance. No polydipsia or polyuria. HEME/LYMPH: No easy bruising. No swollen glands. PSYCH: No change in mood or behavior. OBJECTIVE Vital Signs Date Time Temp Pulse Resp B/P Pulse Ox O2 Delivery O2 Flow Rate FiO2 08/30/16 17:40 96.7 53 20 100 Room air GEN: Awake, alert, oriented, NAD at present. Now dressed in gown. HEENT: EOMI, clear sclerae, moist oral mucosa. CV: Irregular, mildy bradycardic, S1 S2 audible without significant murmur. LUNGS: Diminished but audible air movement throughout. No audible R/R/W. ABD: Soft, NT/ND with normal bowel sounds. EXTR: Trace lower extremity edema bilaterally. Already has WILFRID hose on. INTEG: No rash. Age related changes. NEURO: Tremor in right arm. Weight: 85.2 kg LABS: Reviewed IMAGING 08/27/16 ECHO: PENDING. Prelim LVEF 25-30%, a decline from 1 year prior. RVSP 25 mmHg. 08/26/16 CXR (Reviewed from office): No apparent signs of pneumonia. Increased interstitial markings. No effusion. ASSESSMENT Sarath Salazar is a 71 year old male admitted [facility] 08[facility] after acute hospitalization 08/26-08/29 for acute respiratory distress attributed to acute on chronic systolic congestive heart failure. He did improve with standard therapies for CHF exacerbation but was felt to benefit from further close medical supervision of resolving acute on chronic conditions as well as physical and occupational therapy for deconditioning. PLAN * Deconditioning: PT/OT eval and treat. * Acute on Chronic Systolic Congestive Heart Failure: Improving. New echo pending but prelim shows worsening EF at 25%. 2 gram sodium diet. I&O, daily weight. Carvedilol, spironolactone, lisinopril. Furosemide. * Hypotension: Lowered dose of carvedilol to 6.25 mg BID and spironolactone to 12.5 mg. Parameters to hold if SBP < 90. Continued lower doses in skilled care. * F/E/N: 2 gram sodium diet. Peripheral IV. I&O daily weight. * Prophylaxis: Warfarin * Code Status: DNR. * Dispo: [facility], expecting at least 1 week stay for monitoring CHF and working on strength/endurance. CHRONIC ISSUES * HTN: Carvedilol, lisinopril, spironolactone * BPH: Tamsulosin * B12 Deficiency: Cyanocobalamin. * Vtach: Has history of. Already has AICD. Echo pending but already known to have low LVEF. No longer on amiodarone. Gave Mg 1 gram IV during acute stay. Digoxin. * Nocturnal Hypoxia: Oxygen at night. Allergies/Home Medications Allergies: Coded Allergies: No Known Allergies (Verified Allergy, Unknown, 12/15/15) Reported Home Medications Scheduled Carvedilol (Carvedilol) 6.25 MG PO BID WITH MEALS Cyanocobalamin (Vitamin B-12) (Vitamin B12) 1,000 MCG PO DAILY (Reported) Digoxin (Digoxin) 125 MCG PO DAILY (Reported) Furosemide (Furosemide) 40 MG PO DAILY Lisinopril (Lisinopril) 2.5 MG PO DAILY (Reported) Magnesium Oxide (Magnesium Oxide) 400 MG PO DAILY (Reported) Prednisolone Acetate (Pred Forte 1% Ophthalmic Suspension) 1 DROP OD TID ( Reported) Spironolactone (Spironolactone) 12.5 MG PO DAILY Tamsulosin HCl (Tamsulosin HCl) 0.4 MG PO DAILY@1700 (Reported) Warfarin (Warfarin) 4 MG PO DAILY@1700 (Reported) Scheduled PRN Acetaminophen (Acetaminophen) 650 MG PO Q6H PRN PRN PAIN Discontinued Medications Amiodarone HCl (Amiodarone HCl) 200 MG PO BID (Reported) Discontinued Reason: Course completed Carvedilol (Coreg) 6.25 MG PO BID (Reported) Discontinued Reason: Course completed Carvedilol (Carvedilol) 12.5 MG PO BID WITH MEALS (Reported) Discontinued Reason: Dose changed Enoxaparin Sodium (Lovenox) 120 MG SC DAILY (Reported) Discontinued Reason: Course completed Mirabegron (Myrbetriq) 50 MG PO DAILY (Reported) Discontinued Reason: Course completed Spironolactone (Spironolactone) 12.5 MG PO DAILY (Reported) Discontinued Reason: Course completed Spironolactone (Aldactone) 25 MG PO DAILY (Reported) Discontinued Reason: Dose changed Warfarin (Warfarin) Unknown Dose PO as directed (Reported) Discontinued Reason: Course completed Copies to: End of Report . XIOMARA OROZCO MD Aug 30, 2016 17:45 XIOMARA OROZCO MD Aug 30, 2016 17:45
[2016-08-30] MEDS: warFARin 4 MG (COUMADIN) TAB PO SCH (19:59)
[2016-08-30 20:37] VITALS: BP 107/85
[2016-08-31 07:00] LABS: ALBUMIN 3.4 g/dL (3.4-5.0); ANION GAP 14.4 MEQ/L (3-15); MAGNESIUM* 2.1 mg/dL (1.6-2.3)
--- NOTE | 2016-08-31 07:10 | NUR ---
Report received from Tatiana SIMS and care assumed. Assessments completed.
[2016-08-31 08:09] VITALS: BP 114/48
[2016-08-31] MEDS: PREDNISOLONE 1% OD SCH ×3 (09:00→17:38)
--- NOTE | 2016-08-31 09:00 | NUR ---
Pt had a shower and is up ambulating in bush.
[2016-08-31] MEDS: CARVEDILOL 6.25 MG (COREG) TAB PO SCH ×2 (09:34→17:37)
[2016-08-31] MEDS: SPIRONOLACTONE 25 MG (ALDACTONE) TABLET PO SCH (09:35)
[2016-08-31] MEDS: DIGOXIN 0.125 MG (LANOXIN) TAB PO SCH (09:35)
[2016-08-31] MEDS: lisINopril 5 MG (PRINIVIL) TABLET PO SCH (09:35)
[2016-08-31] MEDS: MAGNESIUM OXIDE 400 MG (MAG-OX) TAB PO SCH (09:35)
[2016-08-31] MEDS: FUROSEMIDE 40 MG (LASIX) TAB PO SCH (09:36)
[2016-08-31] MEDS: CYANOCOBALAMIN 1000 MCG (VITAMIN B-12) TABLET PO SCH (09:36)
--- NOTE | 2016-08-31 12:12 | NUR ---
MED REC COMPLETE--current med list obtained from discharge of previous hospitalization (08/27/16-08/29/16).
--- NOTE | 2016-08-31 12:30 | NUR ---
Family into visit and playing board games, having a good time. Denies needs at present.
[2016-08-31] MEDS ORDERED: warFARin 4 MG (COUMADIN) TAB PO SCH (17:00)
--- NOTE | 2016-08-31 17:06 | NUR ---
Pt up ambulating in bush, visiting with other pts.
[2016-08-31] MEDS: warFARin 4 MG (COUMADIN) TAB PO SCH (17:38)
[2016-08-31] MEDS: TAMSULOSIN 0.4 MG (FLOMAX) CAP PO SCH (17:38)
[2016-08-31 20:07] VITALS: BP 110/70
--- NOTE | 2016-09-01 06:29 | NUR ---
Patient rests throughout night in bed without needs. Has had no pain or needs throughout this shift.
[2016-09-01] MEDS: MAGNESIUM OXIDE 400 MG (MAG-OX) TAB PO SCH (07:45)
[2016-09-01] MEDS: DIGOXIN 0.125 MG (LANOXIN) TAB PO SCH (07:45)
[2016-09-01] MEDS: SPIRONOLACTONE 25 MG (ALDACTONE) TABLET PO SCH (07:45)
[2016-09-01] MEDS: CYANOCOBALAMIN 1000 MCG (VITAMIN B-12) TABLET PO SCH (07:46)
[2016-09-01] MEDS: lisINopril 5 MG (PRINIVIL) TABLET PO SCH (07:47)
[2016-09-01] MEDS: FUROSEMIDE 40 MG (LASIX) TAB PO SCH (07:47)
[2016-09-01] MEDS: PREDNISOLONE 1% OD SCH ×3 (07:48→17:08)
[2016-09-01] MEDS: CARVEDILOL 6.25 MG (COREG) TAB PO SCH ×2 (07:48→17:08)
[2016-09-01 07:59] VITALS: BP 81/60
--- NOTE | 2016-09-01 10:43 | Physical Therapy Evaluation(E) ---
Plan of Care STG: Plan-Treatment Functional: Amb Safe w/ AD on level (without AD on level and unlevel indoor/outdoor surfaces. ) STG Time Frame: 4 Days LTG Time Frame: 7 Days Goals Discussed/Agreed: Yes Plan: Balance, Gait & Transfer Training, Neuro Re-Education, Progressive Ambulation, Strengthening, Therapy Excercise Discharge Recommendations: Home Independently Aware of Dx and Prognosis: Yes Aware of Risk & Benefit: Yes To be Seen: Daily Thursday-Thursday Initial Evaluation Service Date/Time 09/01/16, 10:34 Primary Diagnosis: (1) Dyspnea ICD Code: 786.09 (2) Congestive heart failure ICD Code: 428.0 (3) Benign positional vertigo ICD Code: H81.10 (4) Acute on chronic systolic (congestive) heart failure ICD Code: I50.23 (5) Physical deconditioning ICD Code: R53.81 Treatment Diagnosis: (1) Benign positional vertigo ICD Code: H81.10 (2) Physical deconditioning ICD Code: R53.81 (3) Congestive heart failure ICD Code: 428.0 (4) Control of atrial fibrillation with pacemaker ICD Code: I48.91 Onset Date: 08/26/2016 Start of Care Date: September 01, 2016 Precaution/Isolation: Standard Precautions Fall Level: No Risk 0-24 Initial Assessment Reason for Rehab: Increase Mobility, Increase Strength, Increase Balance, Increase Endurance Medical History: A-Fib, CHF, CVA, Hypertension, Other Pain Location/Comment Patient denies pain. Prior Level of Function Patient lives at home by himself. He would got to CT FIT 24, at one point up to 45 minutes. . He notes having to think about picking up right foot when walking to prevent tripping. He ambulates independently inside and outside of his home. 2 entry steps. Still driving. Currently patient was hospitalized form 08/26-08/29/2016 on inpatient and transitioned to swing bed status on 08/30/2016. Rehabilitation Potential: Good Comment Patient is motivated to return home. Assist: Min Assist/Contact Guard ROM/Strength Hip Mobility: Right Hip Strength: 4 Left Hip Strength: 4+ Knee Flexion Mobility: Right Knee Flexion Strength: 4 Left Knee Flexion Strength: 4+ Knee Extension Mobility: Right Knee Extension Strength: 4 Left Knee Extension Strength: 4+ Ankle Mobility: Right Ankle Strength: 4+ Left Ankle Strength: 4+ Assessment/Goals Initial Transfer Assessment Rolling: Complete Deputy Sit-Supine: Modified Deputy Sitting Edge of Bed: Modified Deputy Supine-Sit: Complete Deputy Sit-Stand from Bed: Supervision or setup Stand-Sit: Supervision or setup Ambulation: Supervision or setup Distance Walked in Feet 500 feet without AD, CGA due to increased trunk sway and unsteadiness, mild shortness of air. Comment Resting blood pressure 111/67, HR 86 bpm, 02 saturation 98% assessed by aide secondary to patient experiencing low blood pressure earlier this AM. Transfer Short Term Goals Sit-Stand from bed: Modified Deputy Stand-Sit: Modified Deputy Ambulation: Complete Deputy Distance to Walk in Feet 1000 feet without AD and 02 saturation greater than or equal to 90%. Comment Additional short term goals: 1) Patient will ambulate a minimum of 500 feet outdoors on level/unlevel surface with supervision to return to ambulation around his home outdoors. 2) Patient will traverse 2 steps with use of hand rail. 3) Patient will tolerate 10 minutes of standing activity without a rest break to improve functional standing tolerance at home. Treatments Ambulation Gait Assist: Min Assist/Contact Guard Gait Description: Unsteady, Uneven Weight Shift 500 feet Coding Time In: 1031 Time Out: 1115 Total Minutes: 44 Charges: 55299 Eval< 20 min, 40062 Gait Training 15 LISANDRO Ayers PT September 01, 2016 10:43
--- NOTE | 2016-09-01 13:34 | OT Therapy Evaluation (E) ---
POC Plan of Care Frequency of OT: OT not indicated (Pt demonstrated good safety awareness and no loss of balance during self care tasks. Able to complete dressing, grooming, toileting, and shower and toilet transfer with independence. Educated patient in deep breathing to ease shortness of breath. During self care tasks and functional mobility, assessed pt's oxgyen level with it being 94% and 98%. Educated pt in installation of a grab bar and use of a bath bench for showering for energy conservation. OT not indicated at this time secondary to pt's level of function. ) Inital Evaluation/General Service Date/Time 09/01/16, 13:26 Primary Diagnosis: (1) Dyspnea ICD Code: 786.09 (2) Congestive heart failure ICD Code: 428.0 (3) Benign positional vertigo ICD Code: H81.10 (4) Acute on chronic systolic (congestive) heart failure ICD Code: I50.23 (5) Physical deconditioning ICD Code: R53.81 Treatment Diagnosis: (1) Weakness ICD Code: R53.1 Onset Date: 08/26/16 Start of Care Date: September 01, 2016 Precaution/Isolation: Standard Precautions Fall Level: No Risk 0-24 Pertinent Medical History: A-Fib, CHF, CVA, Hypertension, Other Pain Level: 0 Oxygen Needed: Room air Living Status Prior to Admit: Alone (1 level home ) Prior Level of Function: Independent ADLs Prior to onset, pt reports independence with self care tasks. Pt reports SOB during daily activities at home. Pt reports completing cooking, finances and medication management. Pt still drives. Reports having a cleaning person come in every two weeks help. Plans Following Discharge: Return Home Support Persons: Sister Entry Into Home: [place] with Railing Steps Into Home: 1 Shower and Tub Type: Walk in with curtain (Stands to complete shower tasks.) Toilet Type: Standard with grab bars ( ) Comment Pt reports no use of an assistive device during functional mobility. No history of falls . Current Function Assessment Mental Status Patient Orientation: Person, Place, Time, Situation Mental Status: Alert Cognition Attention: Intact Memory: Intact Safety/Judgement: Intact Visual/Perceptual Skills Glassess: Yes (Trifocals ) Hearing: Impaired Hand Dominance Hand Dominance: Right ROM/Strength ROM Comment BUE WFL Strength Comment RUE 4-/5 secondary to arthritis, LUE 4/5 CPT/G Codes Time In: 13:20 Time Out: 13:50 Total Minutes: 30 (06/02 eval) CPT Codes: 54894 Eval< 20 minutes (06/02) DEIRDRE DOTSON OT September 01, 2016 13:34
--- NOTE | 2016-09-01 15:53 | PT Daily Note Inpatient (E) ---
PT Daily Treatment Service Date/Time 09/01/16, 15:48 Medical Diagnosis: (1) Dyspnea ICD Code: 786.09 (2) Congestive heart failure ICD Code: 428.0 (3) Benign positional vertigo ICD Code: H81.10 (4) Acute on chronic systolic (congestive) heart failure ICD Code: I50.23 (5) Physical deconditioning ICD Code: R53.81 Physical Therapy: (1) Benign positional vertigo ICD Code: H81.10 (2) Physical deconditioning ICD Code: R53.81 (3) Congestive heart failure ICD Code: 428.0 (4) Control of atrial fibrillation with pacemaker ICD Code: I48.91 Precaution/Isolation: Standard Precautions Fall Level: No Risk 0-24 Subjective Oxygen Delivery: Room air Treatments Sit, Stand, Supine: Sitting, Standing Extremity: Both Lower Extremity Assistance: AROM Repetition: 1 x 10 (standing ex.), 1 x 15 (sitting ex.) Exercise: Hip Abduction, LAQ, Hip Flexion (sitting & standing), Hip Extension, HR Transfers Sit-Stand from bed: Complete [place] Gait Ambulation: Complete [place] Distance Walked: 600' Weight Bearing Status: Full Assistive Device: None Gait Assist: Independent Gait Description: Normal:No Sig. Deviation Gait Training: Limitations: Fatigue Education/Plan Assessment Pt slightly fatigued after walk, tolerates exercises well with no c/o fatigue Safety Awareness: Intact Response to Treatment: Improving Plan Cont POC Patient will be seen: Daily Thursday-Thursday Coding Time In: 1529 Time Out: 1547 Total Minutes: 18 Charges: 91607 Exercise Therp IDA Aguilar PTA September 01, 2016 15:53
[2016-09-01] MEDS: TAMSULOSIN 0.4 MG (FLOMAX) CAP PO SCH (17:08)
[2016-09-01] MEDS: warFARin 4 MG (COUMADIN) TAB PO SCH (17:08)
--- NOTE | 2016-09-01 18:28 | NUR ---
Sarath is independent in his room this shift. He participates with cares and social and interactive with staff. He is cooperative and compliant and able to make needs known.
--- NOTE | 2016-09-01 19:08 | NUR ---
Report given to Josie SIMS and care relinquished
--- NOTE | 2016-09-01 19:32 | NUR ---
Care of pt assumed, pt up independently in room & halls without difficulty. Alert & oriented x4, speech clear. Denies pain or dyspnea. Call light in reach. Will round frequently for cares.
[2016-09-01 19:49] VITALS: BP 93/72
--- NOTE | 2016-09-02 06:37 | NUR ---
Pt has rested well throughout the night, is currently up in chair, denies needs at present.
[2016-09-02 07:41] VITALS: BP 90/60
--- NOTE | 2016-09-02 08:26 | NUR ---
Nutrition Follow Up: Patient is eating 75-100% of 2 g. sodium diet. He was transferred to [facility] bed on 08-30-16 for strengthening/therapy and medication management with CHF. He is participating in therapy. Weight today: 182.6#/83 kg--this is maintained from initial nutrition consult (down 0.6#) Labs: N/A 1. Pt. is eating well and functions independently at home. No nutritional concerns at this time, other than continue 2 g. sodium diet as ordered. Will continue to monitor pt.s progress and reassess regularly.
[2016-09-02] MEDS: DIGOXIN 0.125 MG (LANOXIN) TAB PO SCH (09:19)
[2016-09-02] MEDS: CYANOCOBALAMIN 1000 MCG (VITAMIN B-12) TABLET PO SCH (09:19)
[2016-09-02] MEDS: CARVEDILOL 6.25 MG (COREG) TAB PO SCH ×2 (09:19→18:03)
[2016-09-02] MEDS: FUROSEMIDE 40 MG (LASIX) TAB PO SCH (09:19)
[2016-09-02] MEDS: DOCUSATE SODIUM 100 MG (COLACE) CAP PO PRN (09:19)
[2016-09-02] MEDS: MAGNESIUM OXIDE 400 MG (MAG-OX) TAB PO SCH (09:20)
[2016-09-02] MEDS: SPIRONOLACTONE 25 MG (ALDACTONE) TABLET PO SCH (09:20)
[2016-09-02] MEDS: lisINopril 5 MG (PRINIVIL) TABLET PO SCH (09:20)
[2016-09-02] MEDS: PREDNISOLONE 1% OD SCH ×3 (09:20→18:02)
--- NOTE | 2016-09-02 09:44 | NUR ---
Sarath is found resting bed this AM. He is alert and oriented and able to make needs known. Sarath says "I have a hard time getting a stream started when I urinate, maybe I need a catheter permenently." We discussed monitoring symptoms, alternative options and primary care communication. Sarath responded well and remains cooperative and independent in his room.
--- NOTE | 2016-09-02 16:57 | PT Daily Note Inpatient (E) ---
PT Daily Treatment Service Date/Time 09/02/16, 16:50 Medical Diagnosis: (1) Dyspnea ICD Code: 786.09 (2) Congestive heart failure ICD Code: 428.0 (3) Benign positional vertigo ICD Code: H81.10 (4) Acute on chronic systolic (congestive) heart failure ICD Code: I50.23 (5) Physical deconditioning ICD Code: R53.81 Physical Therapy: (1) Benign positional vertigo ICD Code: H81.10 (2) Physical deconditioning ICD Code: R53.81 (3) Congestive heart failure ICD Code: 428.0 (4) Control of atrial fibrillation with pacemaker ICD Code: I48.91 Precaution/Isolation: Standard Precautions Fall Level: No Risk 0-24 Subjective Patient was in bathroom when PT entered room, up on return to chair from bathroom patient was short of air. Assessed BP to be 78/58, HR variable up to 61 bpm, 02 sautraiton 98%. Patient reports feeling like he could just sleep and is more fatigued today despite sleeping well last night. Pt agreeable to therapy. Pain Location/Comment No pain. Oxygen Delivery: Room air Treatments Sit, Stand, Supine: Sitting Extremity: Both Lower Extremity Resistance: 1 pound Exercise: LAQ, Hip Flexion Comment Reassessed BP after exercise and patient taking another trip to bathroom 145/113 , with no change in HR, 02 saturation. Patient had to urinate three times over the course Nurse notified of patient's BP change with minimal activity. Transfers Supine-Sit: Contact Guard Assist (due to mild unsteadiness. ) Sit-Stand from bed: Contact Guard Assist Gait Ambulation: Contact Guard Assist Distance Walked: 6 feet x 4 Education/Plan Education Instruction on getting closer to toilet prior to managing clothing to decrease risk of falling. Assessment Participation limited by BP changes, pt fatigue, and the frequency in which patient need to go to the bathroom. Safety Awareness: Intact Response to Treatment: No Change Plan Continue with POC if BP more stable consider ambulation outdoors of weather permits. Patient will be seen: Daily Thursday-Thursday Discharge Recommendations: Home Independently (with HH services ) Coding Time In: 1147 Time Out: 1224 Total Minutes: 37 Charges: 15488 Exercise Therp 15 m, 56057 Ther Activity LISANDRO LANGFORD PT September 02, 2016 16:57
[2016-09-02] MEDS: warFARin 4 MG (COUMADIN) TAB PO SCH (18:02)
[2016-09-02] MEDS: TAMSULOSIN 0.4 MG (FLOMAX) CAP PO SCH (18:02)
--- NOTE | 2016-09-02 18:57 | NUR ---
report given to Lc SIMS and care relinquished
[2016-09-02 20:14] VITALS: BP 97/75
--- NOTE | 2016-09-03 02:19 | History and Physical (E) ---
History & Physical Chief complaint: Weakness History of present illness: This is a 89-year-old female that was just discharged 09/01/16. The patient was admitted with a urinary tract infection with sepsis. The patient has been at a residential now for the past 2 days. Staff noticed increasing weakness over the past 12 hours. Patient less responsive. Patient is brought to the emergency department where her white count has gone from approximately 18,000 back up to 49,000. The patient cannot provide a decent history. No other additional history providing individuals are present currently. All information is obtained by review of medical records, nursing personnel, ED staff. We do know is that the patient has had no cough, increasing confusion, increasing weakness, low-grade fever 99.9 at the residential, is short of breath, but this is not brand-new, has no abdominal pain, no nausea or vomiting , is constipated but no change, quite frankly this is all information that we know. The patient lab work demonstrated significant leukocytosis. CT head was unremarkable. Chest x-ray shows recurrent and persistent left lower lobe atelectasis. Lactic acid is normal. Family was consultation and asked if they 1 patient transferred to tertiary care center for further assessment of her recurrent significant leukocytosis. The family requested that the patient stay locally. Patient is a DO NOT RESUSCITATE. If patient were to clinically worsen they would disorder comfortable. There are 2 other family members that they want consult before making final decisions. At this time the patient had blood cultures obtained. Urinalysis is actually unremarkable. No obvious source of leukocytosis is present. The patient will be started on hospital- acquired antibiotics which will include vancomycin and meropenem. Past medical history: Dyslipidemia, left-sided stroke, hypertension, and type 2 diabetes mellitus, dyslipidemia, polymyalgia rheumatica, mitral valve regurgitation Past surgical history: Right carotid endarterectomy, total abdominal hysterectomy Medications are indicated as Tylenol, Benadryl, Lasix, guaifenesin, Norvasc, insulin, lisinopril, Ativan, Remeron, Zofran, MiraLAX, potassium, Abilify, aspirin, vitamin D3, Lexapro Allergies unknown Social history: Patient lives at a residential, , is a DO NOT RESUSCITATE, no tobacco, no alcohol Family history: Unknown Review systems: Patient unable to provide, as noted above, no additional points to be added here Physical examination: Vital signs temperature 98.7, pulse 79, respiratory rate 20, blood pressure 149/ 50, 80% on room air Well-developed somewhat obese elderly white female in minimal distress, responding to verbal and painful stimuli HEENT: Normocephalic atraumatic, extraocular muscles are intact Neck: Supple per nursing personnel with range of motion intact Lungs: Diminished breath sounds, no wheezes or rhonchi Heart: Regular rate and rhythm I hear no obvious murmur Abdomen obese, nontender, per nursing personnel, as sounds are present Extremities: No obvious malformation, left-sided weakness noted Integument: Per nursing personnel there is no obvious skin breakdown, Lab: Sodium 145, potassium 4.3, glucose is 165, BNP 25, creatinine 1, serum bicarbonate is 24, urinalysis is negative, contaminated, white count 49,000 with 93 neutrophils 3% bands, hemoglobin 11 with an MCV of 92, platelet counts 324,000, lactic acid 4.1, Acute abdominal series without acute process CT brain without acute process Impression/plan 1. Leukocytosis acute present on admission: Currently no other inflammatory markers are present specifically there is no fever documented, no tachycardia, no hypothermia, respiratory rate is in normal range, there is leukocytosis, but no significant bandemia, technically this persons meat SIRS criteria. At this time as cause for leukocytosis is not clear. Patients recently hospitalized. Recent urinary tract infection. We will go ahead and cover for hospital- acquired infections. Well use meropenem and vancomycin. Cultures obtained. At this time consider a CT of the chest abdomen and pelvis to further delineate for occult infectious process. Would recommend having pathology review slide peripheral blood to exclude early malignant process. Note that the patient responded to antibiotics last time therefore unlikely that this is malignancy. Most likely infectious. As noted above the patients family declined the opportunity to be transferred to tertiary care center. At least acutely. 2. Type 2 diabetes mellitus chronic present on admission: Continue correctional plan 3. Encephalopathy metabolic acute present on admission: At this time CT head is no acute process. Vital signs are stable. Metabolically intact. Cannot exclude the possibility of an inflammatory and/or infectious process. 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 4. Recent UTI chronic present on admission: Urinalysis is unremarkable, resolution of urinary tract infections appreciated 5. Dementia chronic present on admission: To be aware of 6. Atelectasis, potential infiltrate left lower lung acute present on admission : Patient has no respiratory symptoms. This is a is similar to previous admission. To be aware of This patient presents with an unknown cause for leukocytosis. This patient is hemodynamically stable. Lactic acid normal. Source of leukocytosis is not clear. Urine is clean. Chest x-ray is nonspecific. CT head is unremarkable. As noted above consideration for carrasco imaging to exclude occult infection may not be unreasonable. Consider the possibility of a endocarditis. Although this is unlikely given the fact patient does not have a remarkable fever. We will empirically cover for hospital-acquired infectious process with meropenem and vancomycin. Note the patient did receive Zosyn in the emergency department. Patient is a DO NOT RESUSCITATE Allergies/Home Medications Allergies: Coded Allergies: No Known Allergies (Verified Allergy, Unknown, 12/15/15) Reported Home Medications Scheduled Carvedilol (Carvedilol) 6.25 MG PO BID WITH MEALS Cyanocobalamin (Vitamin B-12) (Vitamin B12) 1,000 MCG PO DAILY (Reported) Digoxin (Digoxin) 125 MCG PO DAILY (Reported) Furosemide (Furosemide) 40 MG PO DAILY Lisinopril (Lisinopril) 2.5 MG PO DAILY (Reported) Magnesium Oxide (Magnesium Oxide) 400 MG PO DAILY (Reported) Prednisolone Acetate (Pred Forte 1% Ophthalmic Suspension) 1 DROP OD TID ( Reported) Spironolactone (Spironolactone) 12.5 MG PO DAILY Tamsulosin HCl (Tamsulosin HCl) 0.4 MG PO DAILY@1700 (Reported) Warfarin (Warfarin) 4 MG PO DAILY@1700 (Reported) Scheduled PRN Acetaminophen (Acetaminophen) 650 MG PO Q6H PRN PRN PAIN Discontinued Medications Carvedilol (Carvedilol) 12.5 MG PO BID WITH MEALS (Reported) Discontinued Reason: Dose changed Spironolactone (Aldactone) 25 MG PO DAILY (Reported) Discontinued Reason: Dose changed Copies to: End of Report . DAVID JOHNSON MD September 03, 2016 02:19
[2016-09-03] MEDS: PREDNISOLONE 1% OD SCH ×3 (08:15→17:17)
[2016-09-03] MEDS: DIGOXIN 0.125 MG (LANOXIN) TAB PO SCH (08:15)
[2016-09-03] MEDS: CARVEDILOL 6.25 MG (COREG) TAB PO SCH ×2 (08:16→17:16)
[2016-09-03] MEDS: CYANOCOBALAMIN 1000 MCG (VITAMIN B-12) TABLET PO SCH (08:16)
[2016-09-03] MEDS: MAGNESIUM OXIDE 400 MG (MAG-OX) TAB PO SCH (08:17)
[2016-09-03] MEDS: FUROSEMIDE 40 MG (LASIX) TAB PO SCH (08:17)
[2016-09-03] MEDS: SPIRONOLACTONE 25 MG (ALDACTONE) TABLET PO SCH (08:17)
[2016-09-03] MEDS: lisINopril 5 MG (PRINIVIL) TABLET PO SCH (08:18)
[2016-09-03 08:20] VITALS: BP 97/60
--- NOTE | 2016-09-03 11:12 | PT Daily Note Inpatient (E) ---
PT Daily Treatment Service Date/Time 09/03/16, 11:08 Medical Diagnosis: (1) Dyspnea ICD Code: 786.09 (2) Congestive heart failure ICD Code: 428.0 (3) Benign positional vertigo ICD Code: H81.10 (4) Acute on chronic systolic (congestive) heart failure ICD Code: I50.23 (5) Physical deconditioning ICD Code: R53.81 Physical Therapy: (1) Benign positional vertigo ICD Code: H81.10 (2) Physical deconditioning ICD Code: R53.81 (3) Congestive heart failure ICD Code: 428.0 (4) Control of atrial fibrillation with pacemaker ICD Code: I48.91 Precaution/Isolation: Standard Precautions Fall Level: No Risk 0-24 Subjective Pt in chair, reports "I'm in a fog here lately and just want to sleep", agrees to PT Pain Level: 0 Oxygen Delivery: Room air Treatments Sit, Stand, Supine: Sitting, Long Sitting Extremity: Both Lower Extremity Assistance: AROM Repetition: 1 x 15 Exercise: AP, Heel Slides, Hip Abduction, SLR, LAQ, Hip Flexion, External Rotation, Internal Rotation Transfers Sit-Stand from bed: Supervision or setup Stand-Sit: Complete [place] Gait Ambulation: Supervision or setup Distance Walked: 600' BP after walk 87/57, x5 minutes later 92/64 Weight Bearing Status: Full Assistive Device: None Gait Assist: Supervision Required Gait Description: Normal:No Sig. Deviation, Narrow Based Gait, Lacks Arm Swing Education/Plan Assessment Pt fatigued at end of treatment, bp 92/64 at end of treatment, tolerates exercises and gait well Safety Awareness: Intact Response to Treatment: Improving Plan Cont POC Patient will be seen: Daily Thursday-Thursday Discharge Recommendations: Home Independently (with HH services ) Coding Time In: 1041 Time Out: 1107 Total Minutes: 26 Charges: 58998 Exercise Therp IDA Aguilar PTA September 03, 2016 11:12
--- NOTE | 2016-09-03 14:30 | PT Daily Note Inpatient (E) ---
PT Daily Treatment Service Date/Time 09/03/16, 14:26 Medical Diagnosis: (1) Dyspnea ICD Code: 786.09 (2) Congestive heart failure ICD Code: 428.0 (3) Benign positional vertigo ICD Code: H81.10 (4) Acute on chronic systolic (congestive) heart failure ICD Code: I50.23 (5) Physical deconditioning ICD Code: R53.81 Physical Therapy: (1) Benign positional vertigo ICD Code: H81.10 (2) Physical deconditioning ICD Code: R53.81 (3) Congestive heart failure ICD Code: 428.0 (4) Control of atrial fibrillation with pacemaker ICD Code: I48.91 Precaution/Isolation: Standard Precautions Fall Level: No Risk 0-24 Subjective Pt agreeable to split tx for endurance training Pain Level: 0 Oxygen Delivery: Room air Treatments Sit, Stand, Supine: Sitting Extremity: Both Lower Extremity Assistance: AROM Repetition: 1 x 20 Exercise: LAQ, Hip Flexion Transfers Sit-Stand from bed: Complete [place] Stand-Sit: Complete [place] Gait Ambulation: Supervision or setup Distance Walked: 600' Weight Bearing Status: Full Assistive Device: None Gait Assist: Independent Gait Description: Decreased Bhavya, Slow, Lacks Trunk Rotation, Lacks Arm Swing, Flexed Trunk Education/Plan Assessment Magda tx well Safety Awareness: Intact Response to Treatment: Improving Plan Cont POC Patient will be seen: Daily Thursday-Thursday Discharge Recommendations: Home Independently (with HH services ) Coding Time In: 1407 Time Out: 1424 Total Minutes: 17 Charges: 93425 Exercise Therp IDA Aguilar PTA September 03, 2016 14:30
--- NOTE | 2016-09-03 14:31 | NUR ---
UP IN CHAIR WATCHING TV. NO COMPLAINTS.
[2016-09-03 15:45] VITALS: BP 91/56
[2016-09-03] MEDS: TAMSULOSIN 0.4 MG (FLOMAX) CAP PO SCH (17:16)
[2016-09-03] MEDS: warFARin 4 MG (COUMADIN) TAB PO SCH (17:16)
--- NOTE | 2016-09-03 19:45 | NUR ---
Pt walking in halls unassisted. No c/o at this time.
--- NOTE | 2016-09-03 20:17 | NUR ---
BP 77/[address] Atkinson notified.
[2016-09-03 20:19] VITALS: BP 77/59
--- NOTE | 2016-09-04 06:57 | NUR ---
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 Pt rests without c/o. Up ambulating the halls this morning.
[2016-09-04 07:55] VITALS: BP 100/63
[2016-09-04] MEDS: MAGNESIUM OXIDE 400 MG (MAG-OX) TAB PO SCH (08:13)
[2016-09-04] MEDS: CYANOCOBALAMIN 1000 MCG (VITAMIN B-12) TABLET PO SCH (08:14)
[2016-09-04] MEDS: DIGOXIN 0.125 MG (LANOXIN) TAB PO SCH (08:14)
[2016-09-04] MEDS: FUROSEMIDE 40 MG (LASIX) TAB PO SCH (08:15)
[2016-09-04] MEDS: CARVEDILOL 6.25 MG (COREG) TAB PO SCH ×2 (08:15→17:20)
[2016-09-04] MEDS: lisINopril 5 MG (PRINIVIL) TABLET PO SCH (08:15)
[2016-09-04] MEDS: PREDNISOLONE 1% OD SCH ×3 (08:16→17:20)
[2016-09-04] MEDS: SPIRONOLACTONE 25 MG (ALDACTONE) TABLET PO SCH (08:16)
[2016-09-04] MEDS: DOCUSATE SODIUM 100 MG (COLACE) CAP PO PRN (08:22)
[2016-09-04] MEDS: POLYETHYLENE GLYCOL 17 GM (MIRALAX) PACKET PO PRN (08:22)
--- NOTE | 2016-09-04 08:23 | NUR ---
REQUEST MEDS FOR CONSTIPATION. MEDS GIVEN.
--- NOTE | 2016-09-04 10:47 | PT Daily Note Inpatient (E) ---
PT Daily Treatment Service Date/Time 09/04/16, 10:40 Medical Diagnosis: (1) Dyspnea ICD Code: 786.09 (2) Congestive heart failure ICD Code: 428.0 (3) Benign positional vertigo ICD Code: H81.10 (4) Acute on chronic systolic (congestive) heart failure ICD Code: I50.23 (5) Physical deconditioning ICD Code: R53.81 Physical Therapy: (1) Benign positional vertigo ICD Code: H81.10 (2) Physical deconditioning ICD Code: R53.81 (3) Congestive heart failure ICD Code: 428.0 (4) Control of atrial fibrillation with pacemaker ICD Code: I48.91 Precaution/Isolation: Standard Precautions Fall Level: No Risk 0-24 Subjective pt has no c/o, feeling good and ready to go home, agrees to therapy Pain Level: 0 Oxygen Delivery: Room air O2 liters/minute: 0 Treatments Sit, Stand, Supine: Sitting, Standing Extremity: Both Lower Extremity Assistance: AROM Repetition: 1 x 15 Exercise: Hip Adduction, LAQ, Hip Flexion (sitting and standing), Hip Extension , HR Transfers Sit-Stand from bed: Complete [place] Stand-Sit: Complete [place] Pivot Transfers: Complete [place] Gait Ambulation: Complete [place] Distance Walked: 600', 300' bp 109/70 after walk Weight Bearing Status: Full Assistive Device: None Gait Assist: Independent Gait Description: Decreased Bhavya, Slow, Lacks Trunk Rotation, Flexed Trunk Education/Plan Assessment Tolerated tx well, strength and endurance improved Safety Awareness: Intact Response to Treatment: Improving Plan Cont POC Patient will be seen: Daily Thursday-Thursday Discharge Recommendations: Home Independently (with HH services ) Coding Time In: 1000 Time Out: 1040 Total Minutes: 40 Charges: 78166 Exercise Therp IDA Aguilar COMPUTATIONAL SCIENCES PROFESSOR September 04, 2016 10:47
--- NOTE | 2016-09-04 11:47 | NUR ---
Resting in chair with eyes closed. resp regular.
--- NOTE | 2016-09-04 14:00 | NUR ---
Visitors at bedside.
[2016-09-04] MEDS: warFARin 4 MG (COUMADIN) TAB PO SCH (17:20)
[2016-09-04] MEDS: TAMSULOSIN 0.4 MG (FLOMAX) CAP PO SCH (17:20)
--- NOTE | 2016-09-04 19:09 | NUR ---
Pt sitting at side of bed, reading newspaper. Denies needs at this time.
[2016-09-04 20:32] VITALS: BP 112/67
--- NOTE | 2016-09-05 06:38 | NUR ---
Uneventful shift. Pt rests w/o needs. Resp even and non labored on RA.
[2016-09-05 07:43] VITALS: BP 101/80
[2016-09-05] MEDS: POLYETHYLENE GLYCOL 17 GM (MIRALAX) PACKET PO PRN (08:21)
[2016-09-05] MEDS: PREDNISOLONE 1% OD SCH ×2 (08:21→13:11)
[2016-09-05] MEDS: FUROSEMIDE 40 MG (LASIX) TAB PO SCH (08:22)
[2016-09-05] MEDS: DOCUSATE SODIUM 100 MG (COLACE) CAP PO PRN (08:23)
[2016-09-05] MEDS: CYANOCOBALAMIN 1000 MCG (VITAMIN B-12) TABLET PO SCH (08:23)
[2016-09-05] MEDS: MAGNESIUM OXIDE 400 MG (MAG-OX) TAB PO SCH (08:24)
[2016-09-05] MEDS: lisINopril 5 MG (PRINIVIL) TABLET PO SCH (08:24)
[2016-09-05] MEDS: DIGOXIN 0.125 MG (LANOXIN) TAB PO SCH (08:24)
[2016-09-05] MEDS: SPIRONOLACTONE 25 MG (ALDACTONE) TABLET PO SCH (08:25)
[2016-09-05] MEDS: CARVEDILOL 6.25 MG (COREG) TAB PO SCH (08:25)
[2016-09-05] MEDS ORDERED: FRSM40T PO (10:50)
--- NOTE | 2016-09-05 10:51 | NUR ---
Resting in chair with eyes closed. Resp regular.
--- NOTE | 2016-09-05 10:58 | Discharge Instructions (E) ---
Discharge Instructions Instructions Continue same medications We checked your PT and BMP today You will see Dr Araya on Thursday for follow up Contact him for any questions or concerns Activity Instructions as tolerates Doctor's Appointment ThursdaySeptember [address] Araya Discharge Diet: Salt (sodium) restricted (2 gm sodium ) Sherice Wylie APRN September 05, 2016 10:58
--- NOTE | 2016-09-05 11:08 | Discharge Summary (E FT) ---
Discharge Summary (E FT) Admit Date Aug 30, 2016 at 17:17 Discharge Date September 05, 2016 Admitting Provider Efraín Momin MD Primary Care Provider Min Araya MD Attending Provider Efraín Momin MD Consulting Provider Hospital Course Summary CC: Deconditioning, CHF HPI Sarath Salazar is a 71 year old male admitted to senior living 08/30 after acute hospitalization 08/26-08/29 for acute respiratory distress attributed to acute on chronic systolic congestive heart failure. He did improve with standard therapies for CHF exacerbation but was felt to benefit from further close medical supervision of resolving acute on chronic conditions as well as physical and occupational therapy for deconditioning. On arrival to unit he was alert and interactive and in no significant distress. Tolerating breathing on room air. Weight 85.2 kg, already up 2 kg from his previous discharge though this may reflect some difference in clothing. Vital Signs Date Time Temp Pulse Resp B/P Pulse Ox O2 Delivery O2 Flow Rate FiO2 09/05/16 07:43 97.0 104 18 101/80 98 Room air 0.00 I & O Past 24 hrs 09/05/16 07:00 Intake Total 2410 ml Output Total 1975 ml Balance 435 ml Intake Oral 2410 ml Output Urine Total 1975 ml # Bowel Movements 1 Laboratory Results Past 24 Hrs 09/05/16 11:04: Anion Gap 16.0, BUN/Creatinine Ratio 24, Blood Urea Nitrogen 29, Calcium Level 9.5, Carbon Dioxide Level 28, Chloride Level 97, Creatinine 1.22, Estimat Glomerular Filtration Rate 71.3, Estimated GFR (Non- 58.9, Glucose Level 130, Potassium Level 4.4, Prothromb Time International Ratio 2.3, Prothrombin Time 25.3, Sodium Level 137 GEN: Awake, alert, oriented, NAD at present. dressed and ready to go home. HEENT: EOMI, clear sclerae, moist oral mucosa. CV: Irregular, S1 S2 audible without significant murmur. LUNGS: Diminished but audible air movement throughout. No audible R/R/W. ABD: Soft, NT/ND with normal bowel sounds. EXTR: Trace lower extremity edema bilaterally. INTEG: No rash. Age related changes. NEURO: no focal neuro deficits Weight: 85.2 kg LABS: Reviewed IMAGING 08/27/16 ECHO: PENDING. Prelim LVEF 25-30%, a decline from 1 year prior. RVSP 25 mmHg. 08/26/16 CXR (Reviewed from office): No apparent signs of pneumonia. Increased interstitial markings. No effusion. ASSESSMENT Sarath Salazar is a 71 year old male admitted to senior living 08/30 after acute hospitalization 08/26-08/29 for acute respiratory distress attributed to acute on chronic systolic congestive heart failure. He did improve with standard therapies for CHF exacerbation but was felt to benefit from further close medical supervision of resolving acute on chronic conditions as well as physical and occupational therapy for deconditioning. PLAN * Deconditioning: PT/OT . * Acute on Chronic Systolic Congestive Heart Failure: Improving. New echo pending but prelim shows worsening EF at 25%. 2 gram sodium diet. I&O, daily weight. Carvedilol, spironolactone, lisinopril. Furosemide. * Hypotension: better * F/E/N: 2 gram sodium diet. * Prophylaxis: Warfarin * Code Status: DNR. * Dis[facility] and now DC to home- , he has done good, adamant he wants to go home, appt Dr Araya on Thursday. He has completed all therapies here. Has done well and declines any help or needs at home. Checking PT/INR and BMP today, med list reviewed with him. CHRONIC ISSUES * HTN: Carvedilol, lisinopril, spironolactone * BPH: Tamsulosin * B12 Deficiency: Cyanocobalamin. * Vtach: Has history of. Already has AICD. Echo pending but already known to have low LVEF. No longer on amiodarone. Gave Mg 1 gram IV during acute stay. Digoxin. * Nocturnal Hypoxia: Oxygen at night. Pt seen and examined, agree with above. Pt has done well with therapy and is anxious to go home. Will send home with f/u early next week. AH Discharge Disposition Home today appt Thursday with Dr Araya New Medications: Furosemide (Lasix) 40 Mg Tab 60 MG PO DAILY #60 TAB Continued Medications: Acetaminophen (Acetaminophen) 325 Mg Tablet 650 MG PO Q6H PRN PAIN #0 Ref 0 TAB Carvedilol (Carvedilol) 6.25 Mg Tablet 6.25 MG PO BID WITH MEALS #10 Ref 0 TAB Cyanocobalamin (Vitamin B-12) (Vitamin B12) 2,500 Mcg Tab.chew 1000 MCG PO DAILY TAB.CHEW Digoxin (Digoxin) 125 Mcg Tablet 125 MCG PO DAILY Lisinopril (Lisinopril) 5 Mg Tablet 2.5 MG PO DAILY TAB Magnesium Oxide (Magnesium Oxide) 400 Mg Tablet 400 MG PO DAILY TAB Prednisolone Acetate (Pred Forte 1% Ophthalmic Suspension) 5 Ml Drops.susp 1 DROP OD TID #5 Spironolactone (Spironolactone) 25 Mg Tablet 12.5 MG PO DAILY #10 Ref 0 TAB Tamsulosin HCl (Tamsulosin HCl) 0.4 Mg Cap.er.24h 0.4 MG PO DAILY@1700 Bph Ref 0 CAP Warfarin (Warfarin) 4 Mg Tablet 4 MG PO DAILY@1700 TAB Discontinued Medications: Furosemide (Furosemide) 20 Mg Tablet 40 MG PO DAILY #10 Ref 0 TAB Follow up Instructions Continue same medications We checked your PT and BMP today You will see Dr Araya on Thursday for follow up Contact him for any questions or concerns Copies to: End of Report . Sherice Wylie APRN September 05, 2016 11:08 Rick Atkinson MD September 06, 2016 21:54
--- NOTE | 2016-09-05 11:27 | PT Daily Note Inpatient (E) ---
PT Daily Treatment Service Date/Time 09/05/16, 11:22 Medical Diagnosis: (1) Dyspnea ICD Code: 786.09 (2) Congestive heart failure ICD Code: 428.0 (3) Benign positional vertigo ICD Code: H81.10 (4) Acute on chronic systolic (congestive) heart failure ICD Code: I50.23 (5) Physical deconditioning ICD Code: R53.81 Physical Therapy: (1) Benign positional vertigo ICD Code: H81.10 (2) Physical deconditioning ICD Code: R53.81 (3) Congestive heart failure ICD Code: 428.0 (4) Control of atrial fibrillation with pacemaker ICD Code: I48.91 Precaution/Isolation: Standard Precautions Fall Level: No Risk 0-24 Subjective Pt up and dressed, washing face and brushing teeth on arrival, "ready to do whatever I have to to get out of here" Pain Level: 0 Oxygen Delivery: Room air O2 liters/minute: 0 Transfers Sit-Stand from bed: Complete [place] Stand-Sit: Complete [place] Pivot Transfers: Complete [place] Gait Ambulation: Complete [place] Distance Walked: 600'x2 bp after 1st walk 97/71, after 2nd walk 93/69 Weight Bearing Status: Full Assistive Device: None Gait Assist: Independent Gait Description: Normal:No Sig. Deviation, Lateral Trunk Lean, Flexed Trunk Gait Training: Limitations: Fatigue Education/Plan Assessment Pt has improved endurance and strength over course of skilled stay, would benefit from further therapy in the outpatient setting Safety Awareness: Intact Response to Treatment: Improving Plan d/c to home Patient will be seen: Daily Thursday-Thursday Discharge Recommendations: Home Independently (with services ) Coding Time In: 847 Time Out: 910 Total Minutes: 23 Charges: 26812 Exercise Therp IDA Aguilar DIPPER AND BAKER September 05, 2016 11:27
--- NOTE | 2016-09-05 12:30 | NUR ---
Eating lunch at this time. states left a message with sister that he was discharged. Informed patient to let nurse know when ride arrives.
--- NOTE | 2016-09-05 13:39 | NUR ---
DISMISSED TO HOME AMB ACCOMPANIED BY DOYLE HUERTA AND SISTER. A/O X 4. RESP UNLABORED. SKIN W/P/D. GAIT STEADY.
== END 2016-09-05 13:39 | disposition home or self-care (01) | DRG 292 ==
LOC: MED/SURG 17:17
PROVIDERS: ADMIT Internal Medicine; ATTEND Internal Medicine
DX: I11.0 Hypertensive heart disease with heart failure (principal); I47.2 Ventricular tachycardia; I50.23 Acute on chronic systolic (congestive) heart failure; Z66 Do not resuscitate; I48.91 Unspecified atrial fibrillation; I95.9 Hypotension, unspecified; I71.2 Thoracic aortic aneurysm, without rupture; G47.33 Obstructive sleep apnea (adult) (pediatric); N40.1 Benign prostatic hyperplasia with lower urinary tract symptoms; R39.11 Hesitancy of micturition; Z79.01 Long term (current) use of anticoagulants; Z95.810 Presence of automatic (implantable) cardiac defibrillator; Z87.891 Personal history of nicotine dependence
CPT/HCPCS: 36415; 80048; 80069; 83735; 85610